=== PATIENT | male | born 1965 | race Caucasian/White ===

== ENCOUNTER 2020-03-29 10:39 | Emergency (ER) | payer SELFPAY ==
[2020-03-29] MEDS ORDERED: ETOMIDATE 20 MG/10 ML VIAL IV ONE (10:40)
[2020-03-29] MEDS ORDERED: SUCCINYLCHOLINE 20 MG/ML (10 ML) IV ONE (10:40)
[2020-03-29] MEDS ORDERED: ROCURONIUM 50 MG/5 ML VIAL IV ONE ×3 (10:40→16:20)
[2020-03-29] MEDS ORDERED: NA CHLORIDE 0.9% 0 ML ONE (10:49)
[2020-03-29] MEDS ORDERED: RSI MEDICATION KIT IV ONE (10:49)
[2020-03-29] MEDS ORDERED: INSULIN -REGULAR HUMAN 100 UNIT in NA CHLORIDE 0.9% 100 ML IV SCH (11:00)
[2020-03-29] MEDS ORDERED: NA CHLORIDE 0.9% 2,000 ML ONE (11:02)
[2020-03-29] MEDS ORDERED: propofoL 1,000 MG/100 ML VIAL IV ONE (11:02)
[2020-03-29] MEDS ORDERED: INSULIN -REGULAR HUMAN 50 UNIT/0.5 ML ML ONE (11:08)
[2020-03-29 11:34] LABS: Absolute Lymphocytes (CBC) 1.9 K/uL (0.7-4.9); Basophils % 0.3 % (0-1.3); Lymphocytes % 5.9 % (15.3-44.8); MPV 12.1 fL (7.6-11.3); RBC Red Blood Cell Count 6.06 M/uL (4.33-5.43)
[2020-03-29 11:37] LABS: Protime INR 0.92
[2020-03-29 11:54] LABS: ALT/SGPT 64 U/L (12-78); AST/SGOT 27 U/L (15-37); Albumin 4.1 g/dL (3.4-5.0); Alkaline Phosphatase 216 U/L (45-117); BUN Blood Urea Nitrogen 79 mg/dL (7-18); Bilirubin Direct 0.2 mg/dL (0-0.2); Bilirubin Total 0.7 mg/dL (0.2-1.0); CKMB Creatine Kinase MB 9.1 ng/mL (0.3-3.6); Creatine Phosphokinase 339 U/L (39-308); Lipase 7516 U/L (73-393); Potassium 4.5 mmol/L (3.5-5.1); Protein, Total 8.8 g/dL (6.4-8.2); Sodium Level 132 mmol/L (136-145); Troponin (Emerg Dept Use Only) < 0.02 ng/mL (0.0-0.045)
[2020-03-29 11:55] LABS: Bicarbonate 11 mmol/L (21-32)
[2020-03-29 11:56] LABS: Amylase 243 U/L (25-115); Glucose Level 1765 mg/dL (74-106); Hematocrit 60.9 % (39.6-49.0)
--- NOTE | 2020-03-29 12:05 | RAD REPORT ---
EXAM DESCRIPTION: CT - Head Brain Wo Cont - 03/29/2020 11:57 am CLINICAL HISTORY: Unresponsive COMPARISON: None TECHNIQUE: Computed axial tomography of the head was obtained. IV contrast was not requested. All CT scans are performed using dose optimization technique as appropriate and may include automated exposure control or mA/KV adjustment according to patient size. FINDINGS: An intracranial bleed is not seen . The ventricles are normal in caliber. No extra-axial fluid collection is noted. . Fluid within the right maxillary sinus may be secondary to the patient being intubated IMPRESSION: No acute intracranial abnormality is seen. If patient's symptoms persist MRI of the bra in would be recommended.
--- NOTE | 2020-03-29 12:17 | RAD REPORT ---
EXAM DESCRIPTION: CT - Chest Abd Pelvis Wo Con - 03/29/2020 11:57 am CLINICAL HISTORY: Patient found unresponsive at home COMPARISON: CT abdomen 2009 TECHNIQUE: Computed axial tomography of the chest, abdomen and pelvis was obtained. Oral contrast wa s given. IV contrast was not requested. All CT scans are performed using dose optimization technique as appropriate and may include automated exposure control or mA/KV adjustment according to patient size. FINDINGS: The evaluation of mediastinum, liza, vessels and solid organs is limited secondary to the lack of IV contrast administration An endotracheal tube has its tip well above the vishal. A nasogastric tube is present within the stom ach. The tip abuts the lateral wall. No mediastinal hematoma. A pleural effusion is not present. A pericardial effusion is not seen. Mild reticular opacities posterior lower lobes bilaterally The liver, spleen, pancreas, adrenals and kidneys appear grossly normal There is no evidence of diverticulitis. A Garcia catheter is present within the bladder. A right femoral line is present. IMPRESSION: Mild reticular opacities within the lower lobes bilaterally may indicate aspiration pneu monitis. The tip of a nasogastric tube abuts the lateral wall of the stomach and should be retracted 2 centime ters No acute abnormality involving the abdomen/pelvis seen
--- NOTE | 2020-03-29 12:19 | RAD REPORT ---
EXAM DESCRIPTION: Angelo Single View03/29/2020 11:21 am CLINICAL HISTORY: Intubation/unresponsive COMPARISON: none FINDINGS: Mild bibasilar interstitial lung opacities. . The heart is normal size. Endotracheal tube with its tip well above the vishal. Nasogastric tube with its tip in the stomach IMPRESSION: Mild bibasilar interstitial lung opacities may indicate aspiration pneumonitis
[2020-03-29] MEDS ORDERED: PANTOPRAZOLE 40 MG INJ ONE (12:45)
[2020-03-29] MEDS ORDERED: CEFEPIME/SWI 1gm 20 ML ONE (12:45)
[2020-03-29 12:57] LABS: Barbiturates NEGATIVE (NEGATIVE); Benzodiazepines NEGATIVE (NEGATIVE); Cocaine NEGATIVE (NEGATIVE); METHAMPHETAM NEGATIVE (NEGATIVE); Methadone NEGATIVE (NEGATIVE); Opiates NEGATIVE (NEGATIVE); Phencyclidine NEGATIVE (NEGATIVE); THC Cannibis NEGATIVE (NEGATIVE)
[2020-03-29] MEDS ORDERED: NOREPINEPHRINE 4mg/D5W 250mL 4 MG/250 ML BAG IV ONE ×2 (12:58→16:28)
[2020-03-29] MEDS ORDERED: PANTOPRAZOLE INJ 80 MG in NA CHLORIDE 0.9% 250 ML IV SCH (13:00)
[2020-03-29] MEDS ORDERED: VANCOMYCIN 1.5 GM in NA CHLORIDE 0.9% 500 ML IVPB ONE (13:00)
[2020-03-29 13:01] LABS: Platelet Estimate INCR
[2020-03-29 13:02] LABS: Blood Morphology Comment NOT SEEN (NOT SEEN)
[2020-03-29 13:18] LABS: Urine Bacteria <20 /HPF (NONE SEEN); Urine RBC <5 /HPF (NONE SEEN)
[2020-03-29 13:28] LABS: Urine Blood 2+ (NEG); Urine Glucose 3+ (NEG); Urine Protein 2+ (NEG)
[2020-03-29 14:33] LABS: Arterial Blood Carboxyhemoglob 1.2 % (0-1.5); Blood Gas Oxyhemoglobin 96.9 % (94-97); Blood O2 Saturation 99.2 % (92-98.5)
[2020-03-29] MEDS ORDERED: NA CHLORIDE 0.9% 1,000 ML ONE (14:59)
--- NOTE | 2020-03-29 15:15 | EDPHYS ---
Physician Documentation [facility] Name: Chele Huertas Age: 55 yrs Sex: Male : 1965 Arrival Date: 03/29/2020 Time: 10:41 Bed 3 Private MD: ED Physician Channing Cabrera HPI: 03/29 18:00 This 55 yrs old Male presents to ER via EMS with complaints of Unresponsive. kdr 18:00 The patient presents with confusion, decreased mental status, decreased responsiveness. kdr Onset: The symptoms/episode began/occurred at an unknown time. Possible causes: CVA or TIA, drug use, low blood sugar, sepsis. Associated signs and symptoms: The patient has no apparent associated signs or symptoms. Current symptoms: In the emergency department the patient's symptoms are unchanged from the initial presentation. Patient's baseline: Neuro: alert and fully oriented, Motor: no deficits, Ambulation: walks without assistance, Speech: normal. It is unknown whether or not the patient has had similar symptoms in the past. It is unknown whether or not the patient has recently seen a physician. The patient was last known to be well about 17:10 last night. He was on a call with his son. Family did not hear from him and he did not show for work so police were called to do a wellness check. They reportedly had to break into the house. He was found naked in the house and unresponsive. EMS started an IO line and gave him some fluids. He arrived in the ED in there same condition. he had no gag reflex and was intubated followed by a cental line in the right groin - he tolerated well and without complicaton. Historical: - Allergies: 13:30 No Known Allergies; sv - PMHx: 13:30 Hypertension; sv - PSHx: 13:30 Appendectomy; Hernia repair; R femur fx; sv - Immunization history:: Adult Immunizations unknown. - Social history:: Smoking status: unknown. ROS: 18:00 Constitutional: Unobtainable kdr 18:00 Unable to obtain ROS due to obtunded state. Exam: 11:22 ECG was reviewed by the Attending Physician. kdr 18:00 Constitutional: This is a well developed, well nourished patient who is awake, alert, kdr and in no acute distress. Head/Face: Normocephalic, atraumatic. Eyes: Pupils equal round and reactive to light, extra-ocular motions intact. Lids and lashes normal. Conjunctiva and sclera are non-icteric and not injected. Cornea within normal limits. Periorbital areas with no swelling, redness, or edema. Neck: Trachea midline, no thyromegaly or masses palpated, and no cervical lymphadenopathy. Supple, full range of motion without nuchal rigidity, or vertebral point tenderness. No Meningismus. Chest/axilla: Normal chest wall appearance and motion. Nontender with no deformity. No lesions are appreciated. Cardiovascular: Regular rate and rhythm with a normal S1 and S2. No gallops, murmurs, or rubs. Normal PMI, no JVD. No pulse deficits. Respiratory: Lungs have equal breath sounds bilaterally, clear to auscultationion. No rales, rhonchi or wheezes noted. the patient is intubated Abdomen/GI: Soft, non-tender, with normal bowel sounds. No distension or tympany. No guarding or rebound. No evidence of tenderness throughout. Back: No spinal tenderness. No costovertebral tenderness. Full range of motion. Skin: Warm, dry with normal turgor. Normal color with no rashes, no lesions, and no evidence of cellulitis. MS/ Extremity: Pulses equal, no cyanosis. Neurovascular intact. Full, normal range of motion. Neuro: Awake and alert, GCS 15, oriented to person, place, time, and situation. Cranial nerves II-XII grossly intact. Motor strength 5/5 in all extremities. Sensory grossly intact. Cerebellar exam normal. Normal gait. Psych: Awake, alert, with orientation to person, place and time. Behavior, mood, and affect are within normal limits. Vital Signs: 10:38 BP 165 / 146; Pulse 123; Resp 26; Pulse Ox 93% ; sv 10:43 BP 125 / 22; Pulse 123; Resp 24; Pulse Ox 93% ; sv 10:50 BP 79 / 60; Pulse 127; Resp 22; Pulse Ox 97% on 100% FiO2 ETT vent; sv 11:00 BP 110 / 90; Pulse 130; Resp 16; Temp 98.5(C); Pulse Ox 95% on 100% FiO2 ETT vent; sv 11:00 Weight 90 kg; sv 11:15 BP 118 / 92; Pulse 129; Resp 16; Pulse Ox 95% on 100% FiO2 ETT vent; sv 11:45 BP 114 / 81; Pulse 119; Resp 16; Pulse Ox 95% on 100% FiO2 ETT vent; sv 12:00 BP 102 / 75; Pulse 119; Resp 16; Pulse Ox 95% on 100% FiO2 ETT vent; sv 12:15 BP 85 / 61; Pulse 117; Resp 16; Pulse Ox 93% on 60% FiO2 ETT vent; sv 12:16 BP 87 / 60; Pulse 117; Resp 16; Pulse Ox 93% on 60% FiO2 ETT vent; sv 12:30 BP 86 / 60; Pulse 118; Resp 20; Pulse Ox 93% on 60% FiO2 ETT vent; sv 12:37 BP 83 / 65; Pulse 119; Resp 21; Pulse Ox 92% on 60% FiO2 ETT vent; sv 12:45 BP 75 / 54; Pulse 119; Resp 23; Pulse Ox 90% on 60% FiO2 ETT vent; sv 12:53 BP 75 / 52; Pulse 120; Resp 24; Pulse Ox 90% on 60% FiO2 ETT vent; sv 13:00 BP 82 / 61; Pulse 119; Resp 24; Temp 98.7(C); Pulse Ox 90% on 100% FiO2 ETT vent; sv 13:15 BP 90 / 70; Pulse 118 MON; Resp 16; Pulse Ox 98% on 100% FiO2 ETT vent; sv 13:30 BP 86 / 62; Pulse 125; Resp 16; Temp 99(C); Pulse Ox 96% on 100% FiO2 ETT vent; sv 13:45 BP 100 / 75; Pulse 125 MON; Resp 16; Pulse Ox 100% on 100% FiO2 ETT vent; sv 14:00 BP 94 / 65; Pulse 124; Resp 16; Pulse Ox 100% on 100% FiO2 ETT vent; sv 14:15 BP 91 / 65; Pulse 122; Resp 16; Pulse Ox 99% on 100% FiO2 ETT vent; sv 14:30 BP 89 / 65; Pulse 122; Resp 16; Temp 99.5(C); Pulse Ox 99% on 100% FiO2 ETT vent; sv 14:45 BP 82 / 63; Pulse 121 MON; Resp 16; Pulse Ox 96% on 100% FiO2 ETT vent; sv 15:00 BP 84 / 60; Pulse 121 MON; Resp 16; Pulse Ox 96% on 100% FiO2 ETT vent; sv 15:15 BP 78 / 62; Pulse 121; Resp 17; Pulse Ox 94% on 100% FiO2 ETT vent; sv 15:30 BP 71 / 50; Pulse 121 MON; Resp 18; Temp 100.7(C); Pulse Ox 93% on 100% FiO2 ETT vent; sv 15:45 BP 74 / 54; Pulse 123; Resp 21; Pulse Ox 95% on 100% FiO2 ETT vent; sv 16:00 BP 81 / 52; Pulse 123; Resp 21; Temp 101.3(C); Pulse Ox 95% on 100% FiO2 ETT vent; sv 13:15 Sinus tachycardia sv 13:45 Sinus tachycardia sv 14:45 Sinus tachycardia sv 15:00 Sinus tachycardia sv 15:15 Sinus tachycardia sv 15:30 Sinus tachycardia sv Ventilator: 10:50 Fi02: 100%; Rate: 16min; T.V.: 580ml; Mode: CPAP; sv Procedures: 18:00 Intubation: Ventilated with 100% NRB prior to procedure. O2 saturation prior to kdr procedure was 95 %. Intubated orally using Glidescope with 7.5 mm ETT. was successful on first attempt. Ventilated with Ambu bag. ventilator. Tube secured with ETT quintana Placement verified by CXR, CO2 detector with (+) color change, auscultating bilateral breath sounds, O2 saturation after procedure was 95 %. Patient tolerated well. Central Line: the site was prepped with Betadine, a triple lumen catheter was inserted, in the right femoral vein, in 1 attempts. placement was verified, by blood return, the site was dressed with 4X4s, Tegaderm, using sterile technique, the patient tolerated the procedure, well. MDM: 15:14 Patient medically screened. kdr 18:00 Data reviewed: vital signs, nurses notes, lab test result(s), radiologic studies. kdr Counseling: I had a detailed discussion with the patient and/or guardian regarding: the historical points, exam findings, and any diagnostic results supporting the discharge/admit diagnosis, lab results, radiology results, the need to transfer to another facility. ED course: [facility] accept to ED. 03/29 11:06 Order name: Glucose, Ancillary Testing; Complete Time: 13:12 EDMS 03/29 11:23 Order name: Glucose, Ancillary Testing EDMS 03/29 11:24 Order name: Acetaminophen kdr 03/29 11:24 Order name: Basic Metabolic Panel kdr 03/29 11:24 Order name: CBC with Diff; Complete Time: 13:12 kdr 03/29 11:24 Order name: ETOH Level; Complete Time: 13:12 kdr 03/29 11:24 Order name: Hepatic Function; Complete Time: 13:12 kdr 03/29 11:24 Order name: PT-INR; Complete Time: 13:12 kdr 03/29 11:24 Order name: Ptt, Activated; Complete Time: 13:12 kdr 03/29 11:24 Order name: Salicylate; Complete Time: 13:12 kdr 03/29 11:24 Order name: Urine Drug Screen; Complete Time: 13:12 kdr 03/29 11:24 Order name: Amylase, Serum; Complete Time: 13:12 kdr 03/29 11:24 Order name: Blood Culture Adult (2) kdr 03/29 11:24 Order name: Ckmb; Complete Time: 13:12 kdr 03/29 11:24 Order name: CPK; Complete Time: 13:12 kdr 03/29 11:24 Order name: Lactate; Complete Time: 13:12 kdr 03/29 11:24 Order name: Lipase; Complete Time: 13:12 kdr 03/29 11:24 Order name: Procalcitonin; Complete Time: 13:12 kdr 03/29 11:24 Order name: Troponin (emerg Dept Use Only); Complete Time: 13:12 kdr 03/29 11:24 Order name: Urine Microscopic Only; Complete Time: 13:37 kdr 03/29 11:25 Order name: Acetaminophen Level; Complete Time: 13:12 EDMS 03/29 11:25 Order name: Basic Metabolic Panel; Complete Time: 13:12 EDMS 03/29 12:25 Order name: Urine Dipstick--Ancillary (enter results); Complete Time: 13:37 dh3 03/29 12:28 Order name: CREATININE WHOLE BLOOD; Complete Time: 13:12 EDMS 03/29 12:31 Order name: SARS-COV-2 RT PCR; Complete Time: 13:12 EDMS 03/29 12:36 Order name: Gastric Occult Blood; Complete Time: 13:37 EDMS 03/29 12:48 Order name: Glucose; Complete Time: 13:37 sv 03/29 12:59 Order name: Glucose, Ancillary Testing; Complete Time: 13:12 EDMS 12/10 11:18 Order name: CXR XRAY; Complete Time: 13:12 eb 03/29 11:24 Order name: EKG; Complete Time: 11:26 kdr 03/29 11:24 Order name: EKG - Nurse/Tech; Complete Time: 12:58 kdr 03/29 11:24 Order name: IV Saline Lock; Complete Time: 12:58 kdr 03/29 11:24 Order name: Labs collected and sent; Complete Time: 12:58 kdr 03/29 11:24 Order name: Urine Dipstick-Ancillary (obtain specimen); Complete Time: 12:58 kdr 03/29 11:24 Order name: Accucheck; Complete Time: 12:58 kdr 03/29 11:27 Order name: CT Head Brain wo Cont; Complete Time: 13:12 kdr 03/29 11:57 Order name: Chest Abd Pelvis Wo Con; Complete Time: 13:12 EDMS 03/29 13:01 Order name: Manual Differential; Complete Time: 13:12 EDMS 03/29 13:36 Order name: ABG kdr 03/29 14:05 Order name: Glucose sv 03/29 14:37 Order name: Lactate Sepsis 2 HR Follow-up EDMS 03/29 15:02 Order name: Glucose sv 03/29 11:24 Order name: Cardiac monitoring; Complete Time: 12:58 kdr 03/29 11:24 Order name: IV Saline Lock - Large Bore; Complete Time: 12:58 kdr 03/29 11:24 Order name: O2 Per Protocol; Complete Time: 12:58 kdr 03/29 11:24 Order name: O2 Sat Monitoring; Complete Time: 12:58 kdr EC:22 Rate is 129 beats/min. Rhythm is regular, Sinus tachycardia with Occasional PVCs. QRS kdr [place] is Normal. [place] interval is normal. QRS interval is normal. QT interval is normal. Clinical impression: Sinus tachycardia. Administered Medications: Discontinued: Propofol 5 mcg/kg/min IV at calculated rate in right antecubital continuous; titrate per protocol (titrate by 5-10mcg/kg/min every 10 min to max rate of 50 mcg/kg/min) 10:44 Drug: Etomidate 20 mg Route: IVP; Site: right antecubital; sv 11:00 Follow up: Response: No adverse reaction sv 10:45 Drug: Rocuronium 50 mg Route: IVP; Site: right antecubital; sv 11:00 Follow up: Response: No adverse reaction sv 10:53 Drug: Propofol 5 mcg/kg/min {Note: started at 10 mcg/kg/min.} Route: IV; Rate: sv calculated rate; Site: right antecubital; 10:57 Follow up: Rate change 5 calculated rate sv 10:58 Follow up: site changed to the Right femoral CL. sv 13:40 Follow up: Propofol turned off at this time d/t vitals. Ok by Dr Cabrera. sv 11:00 Drug: NS 0.9% (30 ml/kg) 30 ml/kg Route: IV; Rate: bolus; Site: right antecubital; sv 14:00 Follow up: Response: No adverse reaction; IV Status: Completed infusion; IV Intake: sv 2700ml 11:20 Drug: Insulin Drip - (Insulin Regular Human 100 units, NS 0.9% 100 ml) {Co-Signature: sv vg1 (Mercy Benítez RN).} Route: IV; Rate: calculated rate; Site: right femoral; 13:01 Follow up: Rate change 11 calculated rate sv 14:05 Follow up: Rate change 13 calculated rate sv 15:10 Follow up: Rate change 15 calculated rate sv 16:10 Follow up: Response: No adverse reaction; Rate change 17 calculated rate sv 16:36 Follow up: Response: No adverse reaction; IV Status: Infusion continued upon transfer sv 11:20 Drug: Insulin Regular Human 10 units {Co-Signature: vg1 (Mercy Benítez RN).} Route: sv IVP; Site: right femoral; 13:02 Follow up: Response: No adverse reaction sv 12:50 Drug: Cefepime 2 grams Route: IVPB; Rate: 200 ml/hr; Infused Over: 30 mins; Site: right sv femoral; 13:03 Follow up: Response: No adverse reaction; IV Status: Completed infusion; IV Intake: 20mlsv 12:50 Drug: Norepinephrine (4 mg/250 mL D5W) 4 mcg/min {Note: started at 10 mcg/min.} Route: sv IV; Rate: calculated rate; Site: right femoral; 13:25 Follow up: Rate change 15 calculated rate sv 15:30 Follow up: Response: No adverse reaction; Rate change 20 calculated rate sv 16:34 Follow up: Response: No adverse reaction; IV Status: Infusion continued upon transfer sv 12:56 Drug: ProTONIX 8 mg/hr Route: IV; Rate: 25 ml/hr; Site: right antecubital; sv 16:34 Follow up: Response: No adverse reaction; IV Status: Infusion continued upon transfer sv 12:56 Drug: vancoMYCIN 1.5 grams Route: IVPB; Rate: calculated rate; Site: right antecubital; sv 15:15 Follow up: Response: No adverse reaction; IV Status: Completed infusion; IV Intake: sv 500ml 12:57 Drug: ProTONIX 40 mg Route: IVP; Site: right femoral; sv 13:02 Follow up: Response: No adverse reaction sv 13:26 Drug: Rocuronium 50 mg Route: IVP; Site: right femoral; sv 14:00 Follow up: Response: No adverse reaction sv 14:48 Drug: NS 0.9% 1000 ml Route: IV; Rate: 150 ml/hr; Site: right femoral; sv 16:33 Follow up: Response: No adverse reaction; IV Status: Infusion continued upon transfer sv 16:10 Drug: Tylenol 1000 mg {Note: given by NGT.} Route: PO; sv 16:31 Follow up: Response: No adverse reaction; Medication administered at discharge. sv 16:11 Drug: fentaNYL (PF) 25 mcg {Note: rass2-Pt starting to wake up and move legs.} Route: sv IVP; Site: right femoral; 16:32 Follow up: Response: No adverse reaction; Medication administered at discharge. sv 16:13 Drug: Rocuronium 50 mg Route: IVP; Site: right femoral; sv 16:32 Follow up: Response: No adverse reaction sv 16:15 Drug: Jesus-Synephrine 100 mcg/min {Note: started at 40 mcg/min.} Route: IV; Rate: sv calculated rate; Site: right femoral; 16:32 Follow up: Response: No adverse reaction; IV Status: Infusion continued upon transfer sv Point of Care Testing: Blood Glucose: 10:52 Blood Glucose: High (>450 mg/dL); sv Ranges: Critical Glucose Levels:Adult <50 mg/dl or >400 mg/dl <40 mg/dl or >180 mg/dl Disposition: 03/29/20 15:14 Transfer ordered to Other Acute Care Facility. Diagnosis is DKA, Aspiration Pneumonia, Pancreatitis, Sepsis. - Reason for transfer: Higher level of care. - Accepting physician is Dr. Tori marsh. - Condition is Critical. - Problem is new. - Symptoms have improved. Signatures: Dispatcher [employer] EDAnnabella Cervantes, RN RN Channing Sanchez MD MD kdr Mercy Benítez RN [id number] Corrections: (The following items were deleted from the chart) 11:33 11:14 CORONAVIRUS+MR.LAB.BRZ ordered. EDMS EDMS 11:57 11:28 Chest Abdomen Pelvis W Con+CT.RAD.BRZ ordered. EDMS EDMS 16:43 15:14 03/29/2020 15:14 Transfer ordered to Other Acute Care Facility. Diagnosis is DKA, sv Aspiration Pneumonia, Pancreatitis, Sepsis. Reason for transfer: Higher level of care. Accepting physician is Dr. Tori marsh. Condition is Critical. Problem is new. Symptoms have improved. kdr
--- NOTE | 2020-03-29 15:15 | ER ---
Nurse's Notes [facility] Name: Chele Huertas Age: 55 yrs Sex: Male : 1965 Arrival Date: 03/29/2020 Time: 10:41 Bed 3 Private MD: Diagnosis: DKA, Aspiration Pneumonia, Pancreatitis, Sepsis Presentation: 03/29 10:38 Chief complaint: EMS states: called out for unresponsive, PD had to knock his door down sv to get inside his house. Pt was unresponsive, responded to painful stimuli. BP 98/62 HR-132 Temp-95.2 BS-HIGH. Coronavirus screen: At this time, unable to obtain information related to travel outside the [place] Ebola Screen: Unable to complete the Ebola screening because: Patient is unresponsive. Initial Sepsis Screen: Does the patient meet any 2 criteria? RR > 20 per min. HR > 90 bpm. Yes Does the patient have a suspected source of infection? No. Patient's initial sepsis screen is negative. Risk Assessment: Do you want to hurt yourself or someone else? Unable to obtain. Onset of symptoms is unknown. 10:38 Method Of Arrival: EMS: [facility] sv 10:38 Acuity: ALEX 1 sv Triage Assessment: 10:40 General: Appears distressed, unkempt, Behavior is unresponsive. Pain: Unable to use sv pain scale. FLACC scale score is 0 out of 10. Patient is unresponsive. Neuro: Level of Consciousness is unresponsive, Oriented to none. Cardiovascular: Capillary refill is > 3 seconds in bilateral fingers Rhythm is sinus tachycardia. Respiratory: Respiratory effort is shallow, weak, Respiratory pattern is snoring. GI: Abdomen is distended. Derm: Skin is intact, Skin is dry, Skin is mottled, Skin temperature is cool. Historical: - Allergies: 13:30 No Known Allergies; sv - PMHx: 13:30 Hypertension; sv - PSHx: 13:30 Appendectomy; Hernia repair; R femur fx; sv - Immunization history:: Adult Immunizations unknown. - Social history:: Smoking status: unknown. Screenin:45 Abuse screen: unable to complete. Nutritional screening: unable to complete. sv Tuberculosis screening: unable to complete . Fall Risk No fall in past 12 months (0 pts). No secondary diagnosis (0 pts). IV access (20 points). Ambulatory Aid- None/Bed Rest/Nurse Assist (0 pts). Gait- Normal/Bed Rest/Wheelchair (0 pts) Mental Status- Overestimates/Forgets Limitations (15 pts.). Total Torres Fall Scale indicates Low Risk Score (25-44 pts). Fall prevention measures have been instituted. Side Rails Up X 2 Placed close to Nursing Station Frequent Obs/Assesments occuring As available Patient and Family Educated on Fall Prevention Program and strategies. Assessment: 11:30 Reassessment: Pt remains intubated and sedated. Respiratory: Respiratory effort is sv even, unlabored, Respiratory pattern is regular, symmetrical. 12:45 Reassessment: Pt remains intubated and sedated. Respiratory: Respiratory effort is sv even, unlabored, Respiratory pattern is regular, symmetrical. 14:03 Reassessment: Pt remains intubated and sedated. Respiratory: Respiratory effort is sv even, unlabored, Respiratory pattern is regular, symmetrical. 14:13 Reassessment: Repeat lactate sent to outside lab. sv 14:56 Reassessment: Pt remains intubated and sedated. Respiratory: Respiratory effort is sv even, unlabored. Vital Signs: 10:38 BP 165 / 146; Pulse 123; Resp 26; Pulse Ox 93% ; sv 10:43 BP 125 / 22; Pulse 123; Resp 24; Pulse Ox 93% ; sv 10:50 BP 79 / 60; Pulse 127; Resp 22; Pulse Ox 97% on 100% FiO2 ETT vent; sv 11:00 BP 110 / 90; Pulse 130; Resp 16; Temp 98.5(C); Pulse Ox 95% on 100% FiO2 ETT vent; sv 11:00 Weight 90 kg; sv 11:15 BP 118 / 92; Pulse 129; Resp 16; Pulse Ox 95% on 100% FiO2 ETT vent; sv 11:45 BP 114 / 81; Pulse 119; Resp 16; Pulse Ox 95% on 100% FiO2 ETT vent; sv 12:00 BP 102 / 75; Pulse 119; Resp 16; Pulse Ox 95% on 100% FiO2 ETT vent; sv 12:15 BP 85 / 61; Pulse 117; Resp 16; Pulse Ox 93% on 60% FiO2 ETT vent; sv 12:16 BP 87 / 60; Pulse 117; Resp 16; Pulse Ox 93% on 60% FiO2 ETT vent; sv 12:30 BP 86 / 60; Pulse 118; Resp 20; Pulse Ox 93% on 60% FiO2 ETT vent; sv 12:37 BP 83 / 65; Pulse 119; Resp 21; Pulse Ox 92% on 60% FiO2 ETT vent; sv 12:45 BP 75 / 54; Pulse 119; Resp 23; Pulse Ox 90% on 60% FiO2 ETT vent; sv 12:53 BP 75 / 52; Pulse 120; Resp 24; Pulse Ox 90% on 60% FiO2 ETT vent; sv 13:00 BP 82 / 61; Pulse 119; Resp 24; Temp 98.7(C); Pulse Ox 90% on 100% FiO2 ETT vent; sv 13:15 BP 90 / 70; Pulse 118 MON; Resp 16; Pulse Ox 98% on 100% FiO2 ETT vent; sv 13:30 BP 86 / 62; Pulse 125; Resp 16; Temp 99(C); Pulse Ox 96% on 100% FiO2 ETT vent; sv 13:45 BP 100 / 75; Pulse 125 MON; Resp 16; Pulse Ox 100% on 100% FiO2 ETT vent; sv 14:00 BP 94 / 65; Pulse 124; Resp 16; Pulse Ox 100% on 100% FiO2 ETT vent; sv 14:15 BP 91 / 65; Pulse 122; Resp 16; Pulse Ox 99% on 100% FiO2 ETT vent; sv 14:30 BP 89 / 65; Pulse 122; Resp 16; Temp 99.5(C); Pulse Ox 99% on 100% FiO2 ETT vent; sv 14:45 BP 82 / 63; Pulse 121 MON; Resp 16; Pulse Ox 96% on 100% FiO2 ETT vent; sv 15:00 BP 84 / 60; Pulse 121 MON; Resp 16; Pulse Ox 96% on 100% FiO2 ETT vent; sv 15:15 BP 78 / 62; Pulse 121; Resp 17; Pulse Ox 94% on 100% FiO2 ETT vent; sv 15:30 BP 71 / 50; Pulse 121 MON; Resp 18; Temp 100.7(C); Pulse Ox 93% on 100% FiO2 ETT vent; sv 15:45 BP 74 / 54; Pulse 123; Resp 21; Pulse Ox 95% on 100% FiO2 ETT vent; sv 16:00 BP 81 / 52; Pulse 123; Resp 21; Temp 101.3(C); Pulse Ox 95% on 100% FiO2 ETT vent; sv 13:15 Sinus tachycardia sv 13:45 Sinus tachycardia sv 14:45 Sinus tachycardia sv 15:00 Sinus tachycardia sv 15:15 Sinus tachycardia sv 15:30 Sinus tachycardia sv ED Course: 10:38 azure architect on. Pulse ox on. NIBP on. sv 10:40 Inserted saline lock: 20 gauge in right antecubital area, using aseptic technique. sv ,using aseptic technique. done by Cy DAVID Blood collected. 10:41 Patient arrived in ED. iw 10:45 Patient has correct armband on for positive identification. Placed in gown. Bed in low sv position. Call light in reach. Side rails up X2. 10:45 Arm band placed on. sv 10:46 Assisted provider with intubation using 7.5 mm ETT via oral route. ET tube secured at sv 24cm at the teeth. Set up intubation tray. Intubated by Channing Cabrera MD Placement verified by CO2 detector w/ + color change, auscultating bilateral breath sounds, CXR, Patient tolerated poorly. 10:48 Garcia cath inserted, using sterile technique, 16 Fr., by ED staff, balloon inflated, to sv gravity drainage, urine specimen collected. other done by Cy DAVID. 10:55 NGT: inserted 16 Fr. via left nare. verified placement of air over stomach, verified sv return of gastric contents, to intermittent suction. Returned gastric contents. brown/red in color. 10:58 Assisted provider with central line placement. Set up central line tray. Triple lumen sv line placed in right femoral. Line placed by Channing Cabrera MD Placement verified by blood return, Dressed with Tegaderm, Patient tolerated poorly. Before procedure, did Practitioner(s) obtain informed consent? No. Patient \T\ family education about procedure, CLABSI prevention and S/S of infection? No. Time-out/Briefing performed prior to start of procedure? Yes. Was handwashing/sanitizing done immediately prior to procedure? Yes. Was patient positioned to in a way to prevent air embolism? Yes. Was procedure site sterilized? Yes, with chlorhexidine. Was the site allowed to dry? Yes. Was local anesthetic and/or sedation utilized? Yes. During the procedure, did the Practitioner(s) maintain a sterile field? Yes. Were unused ports clamped during insertion? Yes. Was a 2nd qualified MD obtained after 3 unsuccessful insertion attempts? Yes. Was blood aspirated from each lumen? Yes. After the procedure, did the Practitioner(s) clean the site and apply a sterile dressing? Yes. 11:21 CXR XRAY In Process Unspecified. EDMS 11:21 Channing Cabrera MD is Attending Physician. kdr 11:57 CT Head Brain wo Cont In Process Unspecified. EDMS 11:57 Chest Abd Pelvis Wo Con In Process Unspecified. EDMS 12:26 Annabella Lima, RN is Primary Nurse. sv 13:02 Basic Metabolic Panel Sent. sv 13:02 Acetaminophen Sent. sv 13:02 Glucose, Ancillary Testing Sent. sv 13:26 initiated a transfer with ANTIONETTE Contreras from the [facility] [place]/ per ANTIONETTE they do [facility] no have any ICU beds at this time and will have to deny the patient in transfer. 13:29 initiated a transfer with Alyssa from the [facility] [place]. 3 13:30 Notified ED physician of a critical lab result(s). glucose-1550. sv 13:40 Triage completed. sv 13:42 Alyssa from [facility] called to decline the patient in transfer due to being at dh3 capacity. 13:51 called and initiated a transfer with Frank from the [facility] transfer center. 3 13:54 administrative approval given by Felix Solis RN/ patient has been accepted to [address]/ Dr. Mike Chavarria has accepted the patient in transfer/ report to be called to [phone]. 13:57 connected the ER doctor foreign legal consultant for [facility] with Dr. Cabrera for patient [facility] transfer consultation. 14:04 One-on-one care X 180 minutes. sv 14:56 transfer transportation to receiving facility. sv 14:56 Patient transferred, IV remains in place. intact. sv Administered Medications: Discontinued: Propofol 5 mcg/kg/min IV at calculated rate in right antecubital continuous; titrate per protocol (titrate by 5-10mcg/kg/min every 10 min to max rate of 50 mcg/kg/min) 10:44 Drug: Etomidate 20 mg Route: IVP; Site: right antecubital; sv 11:00 Follow up: Response: No adverse reaction sv 10:45 Drug: Rocuronium 50 mg Route: IVP; Site: right antecubital; sv 11:00 Follow up: Response: No adverse reaction sv 10:53 Drug: Propofol 5 mcg/kg/min {Note: started at 10 mcg/kg/min.} Route: IV; Rate: sv calculated rate; Site: right antecubital; 10:57 Follow up: Rate change 5 calculated rate sv 10:58 Follow up: site changed to the Right femoral CL. sv 13:40 Follow up: Propofol turned off at this time d/t vitals. Ok by Dr Cabrera. sv 11:00 Drug: NS 0.9% (30 ml/kg) 30 ml/kg Route: IV; Rate: bolus; Site: right antecubital; sv 14:00 Follow up: Response: No adverse reaction; IV Status: Completed infusion; IV Intake: sv 2700ml 11:20 Drug: Insulin Drip - (Insulin Regular Human 100 units, NS 0.9% 100 ml) {Co-Signature: sv vg1 (Mercy Benítez RN).} Route: IV; Rate: calculated rate; Site: right femoral; 13:01 Follow up: Rate change 11 calculated rate sv 14:05 Follow up: Rate change 13 calculated rate sv 15:10 Follow up: Rate change 15 calculated rate sv 16:10 Follow up: Response: No adverse reaction; Rate change 17 calculated rate sv 16:36 Follow up: Response: No adverse reaction; IV Status: Infusion continued upon transfer sv 11:20 Drug: Insulin Regular Human 10 units {Co-Signature: vg1 (Mercy Benítez RN).} Route: sv IVP; Site: right femoral; 13:02 Follow up: Response: No adverse reaction sv 12:50 Drug: Cefepime 2 grams Route: IVPB; Rate: 200 ml/hr; Infused Over: 30 mins; Site: right sv femoral; 13:03 Follow up: Response: No adverse reaction; IV Status: Completed infusion; IV Intake: 20mlsv 12:50 Drug: Norepinephrine (4 mg/250 mL D5W) 4 mcg/min {Note: started at 10 mcg/min.} Route: sv IV; Rate: calculated rate; Site: right femoral; 13:25 Follow up: Rate change 15 calculated rate sv 15:30 Follow up: Response: No adverse reaction; Rate change 20 calculated rate sv 16:34 Follow up: Response: No adverse reaction; IV Status: Infusion continued upon transfer sv 12:56 Drug: ProTONIX 8 mg/hr Route: IV; Rate: 25 ml/hr; Site: right antecubital; sv 16:34 Follow up: Response: No adverse reaction; IV Status: Infusion continued upon transfer sv 12:56 Drug: vancoMYCIN 1.5 grams Route: IVPB; Rate: calculated rate; Site: right antecubital; sv 15:15 Follow up: Response: No adverse reaction; IV Status: Completed infusion; IV Intake: sv 500ml 12:57 Drug: ProTONIX 40 mg Route: IVP; Site: right femoral; sv 13:02 Follow up: Response: No adverse reaction sv 13:26 Drug: Rocuronium 50 mg Route: IVP; Site: right femoral; sv 14:00 Follow up: Response: No adverse reaction sv 14:48 Drug: NS 0.9% 1000 ml Route: IV; Rate: 150 ml/hr; Site: right femoral; sv 16:33 Follow up: Response: No adverse reaction; IV Status: Infusion continued upon transfer sv 16:10 Drug: Tylenol 1000 mg {Note: given by NGT.} Route: PO; sv 16:31 Follow up: Response: No adverse reaction; Medication administered at discharge. sv 16:11 Drug: fentaNYL (PF) 25 mcg {Note: rass2-Pt starting to wake up and move legs.} Route: sv IVP; Site: right femoral; 16:32 Follow up: Response: No adverse reaction; Medication administered at discharge. sv 16:13 Drug: Rocuronium 50 mg Route: IVP; Site: right femoral; sv 16:32 Follow up: Response: No adverse reaction sv 16:15 Drug: Jesus-Synephrine 100 mcg/min {Note: started at 40 mcg/min.} Route: IV; Rate: sv calculated rate; Site: right femoral; 16:32 Follow up: Response: No adverse reaction; IV Status: Infusion continued upon transfer sv Point of Care Testing: Blood Glucose: 10:52 Blood Glucose: High (>450 mg/dL); sv Ranges: Intake: 13:03 IV: 20ml; Total: 20ml. sv 14:00 IV: 2700ml; Total: 2720ml. sv 15:15 IV: 500ml; Total: 3220ml. sv Output: 16:15 Urine: 200ml (Garcia); Gastric: 1400ml (NGT); Total: 1600ml. sv Ventilator: 10:50 Fi02: 100%; Rate: 16min; T.V.: 580ml; Mode: CPAP; sv Outcome: 14:54 Transferred by ground EMS Transfer form completed. X-rays sent w/ patient. Note: sv Report given to Charo from [facility] 14:54 Condition: stable 14:54 Instructed on the need for transfer. 15:14 ER care complete, transfer ordered by . kdr 16:43 Patient left the ED. sv Signatures: Dispatcher [employer] EDAnnabella Cervantes RN RN sv Channing Cabrera MD MD kdr Williams, Irene, RN RN iw Herrera, Deanna dh3 Victoria Garcia RN vg1 Corrections: (The following items were deleted from the chart) 13:01 12:50 Norepinephrine (4 mg/250 mL D5W) 4 mcg/min IV at calculated rate in right femoral sv sv 13:03 12:54 IV Status: Completed infusion; IV Intake: 20ml sv sv 13:14 13:00 BP 82 / 61; Pulse 119bpm; Resp 24bpm; Pulse Ox 90%; sv sv 13:29 12:57 90 kg; sv sv 13:29 10:50 BP 79 / 60; Pulse 127bpm; Resp 22bpm; Pulse Ox 97%; sv sv 13:29 11:00 BP 110 / 90; Pulse 130bpm; Resp 16bpm; Pulse Ox 95%; Temp 98.5F Catheter; sv sv 13:29 11:15 BP 118 / 92; Pulse 129bpm; Resp 16bpm; Pulse Ox 95%; sv sv 13:29 11:45 BP 114 / 81; Pulse 119bpm; Resp 16bpm; Pulse Ox 95%; sv sv 13:29 12:00 BP 102 / 75; Pulse 119bpm; Resp 16bpm; Pulse Ox 95%; sv sv 13:29 12:15 BP 85 / 61; Pulse 117bpm; Resp 16bpm; Pulse Ox 93%; sv sv 13:29 12:16 BP 87 / 60; Pulse 117bpm; Resp 16bpm; Pulse Ox 93%; sv sv 13:29 12:30 BP 86 / 60; Pulse 118bpm; Resp 20bpm; Pulse Ox 93%; sv sv 13:29 12:45 BP 75 / 54; Pulse 119bpm; Resp 23bpm; Pulse Ox 90%; sv sv 13: 12:53 BP 75 / 52; Pulse 120bpm; Resp 24bpm; Pulse Ox 90%; sv sv 13: 12:37 BP 83 / 65; Pulse 119bpm; Resp 21bpm; Pulse Ox 92%; sv sv : 13:00 BP 82 / 61; Pulse 119bpm; Resp 24bpm; Pulse Ox 90%; Temp 98.7F Catheter; sv sv 13:45 10:53 Propofol 5 mcg/kg/min IV at calculated rate in right antecubital sv sv
[2020-03-29] MEDS ORDERED: ACETAMINOPHEN 500 MG TAB ONE (16:04)
[2020-03-29] MEDS ORDERED: FENTANYL CITR 100 MCG/2 ML ONE (16:20)
[2020-04-03 19:25] VITALS: O2SAT 95
[2020-04-03 19:27] VITALS: BP 81/52; TEMP 101.3
== END 2020-03-29 16:43 ==
LOC: ER 10:39
PROC: 0BH17EZ Insertion of Endotracheal Airway into Trachea, Via Natural or Artificial Opening (ICD-10-PCS; principal; 2020-03-29)
PROC: 5A1935Z Respiratory Ventilation, Less than 24 Consecutive Hours (ICD-10-PCS; 2020-03-29)
PROC: 06HT33Z Insertion of Infusion Device into Right Foot Vein, Percutaneous Approach (ICD-10-PCS; 2020-03-29)
DX: E11.10 Type 2 diabetes mellitus with ketoacidosis without coma (principal); A41.9 Sepsis, unspecified organism; J69.0 Pneumonitis due to inhalation of food and vomit; K85.90 Acute pancreatitis without necrosis or infection, unspecified; Z20.828 Contact with and (suspected) exposure to other viral communicable diseases; I10 Essential (primary) hypertension
CPT/HCPCS: 31500; 36415; 51702; 70450; 71045; 71250; 74176; 80048; 80076; 80307; 80320; 80329; 81003; 81015; 82150; 82271; 82550; 82553; 82565; 82805; 82947; 83605; 83690; 83986; 84145; 84484; 85025; 85610; 85730; 87040; 93005; 94002; 99291; 99292; C9113; J0330; J0692; J2370; J2704; J3010; J3370; J7030; J7040; J7050; J7060; U0003